=== PATIENT | male | born 1990 | race Caucasian/White ===

== ENCOUNTER 2020-02-25 15:09 | Emergency (ER) | payer OTHER ==
[~2020-02-25] VITALS: Ht 182.9 cm; Wt 108.9 kg
[2020-02-25 17:05] VITALS: BP 148/51
[2020-02-25] MEDS ORDERED: MOBIC15 MG PO (17:07)
[2020-02-25] MEDS ORDERED: NORCO 5-325 TA1 EAC2 PO (17:07)
== END 2020-02-25 17:05 | disposition home or self-care (01) ==
LOC: ER 15:09
DX: S82.892A Other fracture of left lower leg, initial encounter for closed fracture (principal); F17.210 Nicotine dependence, cigarettes, uncomplicated; X50.1XXA Overexertion from prolonged static or awkward postures, initial encounter; Y93.89 Activity, other specified; Y92.89 Other specified places as the place of occurrence of the external cause; Y99.8 Other external cause status